=== PATIENT | female | born 1985 | race Caucasian/White ===

== ENCOUNTER 2018-03-04 01:40 | Inpatient (IN) ==
[2018-03-04 02:19] LABS: Apearance,Urine Slightly Hazy (Clear); Bacteria,Urine Many /HPF (Few); Bilirubin,Urine Negative (Negative); Blood, Urine Moderate mg/dL (Negative); Glucose,Urine (UA) Negative (Negative); Ketones,Urine Negative (Negative); Mucus,Urine Occasional /LPF (Occasional); Nitrite,Urine Negative (Negative); Protein,Urine 30 MG/DL; RBC,Urine 72 /HPF (0-4); Squamous Epithelial Cell,Urine Occasional /HPF (0-10); Urine Color Yellow (Yellow); Urine Specific Gravity 1.015 (1.001-1.035); Urine Urobilinogen < 2.0 EU/DL (0.2-1.0); WBC,Urine 22 /HPF (0-6)
[2018-03-04 02:49] LABS: Barbiturates Screen,Urine Negative (Negative); Benzodiazepines Screen,Urine Negative (Negative); Cannabinoid Screen,Urine Positive (Negative); Opiate Screen,Urine Negative (Negative); Phencyclidine Screen,Urine Negative (Negative)
[2018-03-04 03:42] LABS: Basophils # 0.1 10*3/uL (0.0-0.2); Basophils % 0.5 % (0.0-0.8); Eosinophils # 0.3 10*3/uL (0.0-0.87); Eosinophils % 2.4 % (0.00-10.9); Hematocrit 32.7 VOL% (35.7-47.0); Hemoglobin 11.1 GM/DL (12.0-16.0); Immature Granulocytes % 1.2 %; Immature Granulocytes Absolute 0.14 #; Lymphocytes % 17.5 % (21.3-54.2); Mean Corpuscular HGB Conc 33.9 GM/DL (32-36); Mean Corpuscular Hemoglobin 32 PG (27-34); Mean Corpuscular Volume 93.4 FL (87-102); Monocytes # 0.8 10*3/uL (0.11-0.8); Neutrophils # 8.3 10*3/uL (1.4-7.4); Neutrophils % 71.4 % (38.7-73.9); Platelet Count 229 T/CUMM (130-400); Red Cell Distribution Width 13.2 % (9.3-17.3); White Blood Count 11.6 T/CUMM (4-12)
[2018-03-04] MEDS: LACTATED RINGERS 1,000 ML IV SCH ×3 (03:50→19:31)
[2018-03-04 04:01] LABS: Alanine Aminotransferase 49 U/L (13-56); Alkaline Phosphatase 200 U/L (45-117); Aspartate Amino Transferase 38 U/L (0-37); Bilirubin,Total < 0.39 MG/DL (0.2-1.0); Blood Urea Nitrogen 16 MG/DL (7-18); Calcium 8.7 MG/DL (8.5-10.1); Glucose 96 MG/DL (74-106); Osmolality,Calculated 275.7 MOS/KG (273-304); Potassium 3.7 MMOL/L (3.5-5.1); Sodium 138 MMOL/L (136-145); Total Protein 6.6 G/DL (6.4-8.3)
[2018-03-04 04:06] LABS: INR 0.8; PT Patient Result 8.9 SECS; Partial Thromboplastin Time 27.1 SECS (0-40)
[2018-03-04] MEDS ORDERED: BUPIVACAINE SPINAL 0.75% 2 ML AMP SPINAL ONE (07:01)
[2018-03-04] MEDS ORDERED: fentaNYL 100 MCG/2 ML VIAL ONE (07:01)
[2018-03-04] MEDS ORDERED: ONDANSETRON 4 MG/2 ML VIAL ONE ×2 (07:01→07:02)
[2018-03-04] MEDS ORDERED: MORPHINE 10 MG/10 ML VIAL ONE (07:01)
[2018-03-04] MEDS ORDERED: ONDANSETRON 4 MG/2 ML VIAL IV ONE (07:08)
[2018-03-04] MEDS ORDERED: OXYTOCIN/LR 20 UNIT/1,000 ML BAG IV ONE ×3 (07:25→12:14)
[2018-03-04] MEDS ORDERED: miSOPROStol 200 MCG TABLET ONE (07:30)
[2018-03-04] MEDS ORDERED: CITRIC ACID/SODIUM CITRATE 30 ML UDCUP PO ONE (07:30)
[2018-03-04] MEDS ORDERED: FAMOTIDINE 20 MG/2 ML VIAL IV ONE (07:30)
[2018-03-04] MEDS ORDERED: ceFAZolin 2,000 MG in PREMIX 1 EACH IV ONE (07:30)
[2018-03-04] MEDS ORDERED: METHYLERGONOVINE 0.2 MG/1 ML AMP ONE (07:31)
[2018-03-04] MEDS ORDERED: CARBOPROST TROMETHAMINE 250 MCG/ML AMP IM ONE (07:31)
[2018-03-04 09:02] LABS: Cord Venous Blood HCO3 21.4 MMOL/L; Cord Venous Blood PCO2 44.9 MMHG
[2018-03-04] MEDS ORDERED: ROPIVACAINE 0.5% 30 ML VIAL ONE (09:11)
[2018-03-04] MEDS ORDERED: MIDAZOLAM 2 MG/2 ML VIAL ONE (09:48)
[2018-03-04 10:59] LABS: Apearance,Urine CLEAR (Clear); Bacteria,Urine Occasional /HPF (Few); Bilirubin,Urine Negative (Negative); Blood, Urine Negative (Negative); Glucose,Urine (UA) Negative (Negative); Ketones,Urine Negative (Negative); Mucus,Urine Occasional /LPF (Occasional); Nitrite,Urine Negative (Negative); Protein,Urine Negative; RBC,Urine 2 /HPF (0-4); Squamous Epithelial Cell,Urine Occasional /HPF (0-10); Urine Color Yellow (Yellow); Urine Specific Gravity 1.012 (1.001-1.035); Urine Urobilinogen < 2.0 EU/DL (0.2-1.0); WBC,Urine 5 /HPF (0-6)
[2018-03-04] MEDS ORDERED: MAGNESIUM HYDROXIDE SUSP 30 ML UDCUP PO PRN (12:14)
[2018-03-04] MEDS ORDERED: RHO(D) IMMUNE GLOBULIN 300 MCG SYRINGE IM ONE (12:14)
[2018-03-04] MEDS ORDERED: SIMETHICONE CHEW 80 MG TABLET PO PRN (12:14)
[2018-03-04] MEDS ORDERED: ONDANSETRON 4 MG/2 ML VIAL IV PRN (12:14)
[2018-03-04] MEDS: KETOROLAC 30 MG/1 ML VIAL IV SCH ×2 (13:58→20:51)
[2018-03-04] MEDS: SULFAMETHOX/TRIMETHOPRIM 800-160 MG TABLET PO SCH ×2 (14:14→23:27)
[2018-03-04] MEDS: cefOXitin 2,000 MG in SYRINGE 1 EACH IV SCH ×2 (14:22→19:58)
[2018-03-04] MEDS ORDERED: IBUPROFEN 800 MG TABLET PO SCH (18:00)
[2018-03-04] MEDS ORDERED: ACETAMINOPHEN 500 MG TABLET PO SCH (18:30)
[2018-03-04] MEDS: DOCUSATE SODIUM 100 MG CAPSULE PO SCH (21:12)
[2018-03-04 22:25] LABS: Basophils # 0.1 10*3/uL (0.0-0.2); Basophils % 0.4 % (0.0-0.8); Eosinophils # 0.2 10*3/uL (0.0-0.87); Eosinophils % 1.6 % (0.00-10.9); Hematocrit 33.8 VOL% (35.7-47.0); Hemoglobin 10.7 GM/DL (12.0-16.0); Immature Granulocytes Absolute 0.11 #; Lymphocytes # 1.5 10*3/uL (1.4-4.0); Lymphocytes % 13.3 % (21.3-54.2); Mean Corpuscular HGB Conc 31.7 GM/DL (32-36); Mean Corpuscular Hemoglobin 32 PG (27-34); Mean Corpuscular Volume 100.6 FL (87-102); Mean Platelet Volume 11.2 FL (9.6-12.0); Monocytes # 0.7 10*3/uL (0.11-0.8); Monocytes % 5.9 % (1.7-12.7); Neutrophils # 8.8 10*3/uL (1.4-7.4); Neutrophils % 77.8 % (38.7-73.9); Platelet Count 125 T/CUMM (130-400); Red Blood Count 3.36 MC/CUMM (3.8-5.5); Red Cell Distribution Width 13.6 % (9.3-17.3); White Blood Count 11.3 T/CUMM (4-12)
[2018-03-04] MEDS: SERTRALINE 25 MG TABLET PO SCH (23:30)
[2018-03-05] MEDS: ACETAMINOPHEN 500 MG TABLET PO SCH ×5 (01:45→22:06)
[2018-03-05] MEDS: KETOROLAC 30 MG/1 ML VIAL IV SCH (01:47)
[2018-03-05] MEDS: cefOXitin 2,000 MG in SYRINGE 1 EACH IV SCH (01:50)
[2018-03-05] MEDS: oxyCODONE IR 5 MG TABLET PO PRN ×2 (05:39→17:36)
[2018-03-05] MEDS: MULTIVITAMIN (PRENATAL) TABLET PO SCH (09:31)
[2018-03-05] MEDS: IBUPROFEN 800 MG TABLET PO SCH ×2 (09:32→17:27)
[2018-03-05] MEDS: SULFAMETHOX/TRIMETHOPRIM 800-160 MG TABLET PO SCH ×2 (09:33→22:05)
[2018-03-05] MEDS: DOCUSATE SODIUM 100 MG CAPSULE PO SCH ×2 (09:33→22:06)
[2018-03-05] MEDS: LACTATED RINGERS 1,000 ML IV SCH (09:59)
[2018-03-05] MEDS ORDERED: cefTRIAXone 250 MG VIAL IM ONE (14:59)
[2018-03-05] MEDS ORDERED: AZITHROMYCIN 250 MG TABLET PO ONE (15:00)
[2018-03-05] MEDS: SERTRALINE 25 MG TABLET PO SCH (22:06)
[2018-03-06] MEDS: IBUPROFEN 800 MG TABLET PO SCH ×2 (00:14→08:43)
[2018-03-06] MEDS: ACETAMINOPHEN 500 MG TABLET PO SCH ×2 (04:46→11:45)
[2018-03-06 07:18] VITALS: BP 130/76
[2018-03-06] MEDS: oxyCODONE IR 5 MG TABLET PO PRN ×2 (08:46→08:58)
[2018-03-06] MEDS: DOCUSATE SODIUM 100 MG CAPSULE PO SCH (08:47)
[2018-03-06] MEDS: SULFAMETHOX/TRIMETHOPRIM 800-160 MG TABLET PO SCH (08:47)
[2018-03-06] MEDS: MULTIVITAMIN (PRENATAL) TABLET PO SCH (09:02)
== END 2018-03-06 12:33 | disposition home or self-care (01) | DRG 540 ==
LOC: N.LDOUT 01:40 → N.LD 01:43 → N.OB 12:52
PROVIDERS: ADMIT Obstetrics & Gynecology; ATTEND Obstetrics & Gynecology